=== PATIENT | male | born 1960 | race Caucasian/White ===

== ENCOUNTER 2018-11-29 07:12 | Outpatient (CLI) | payer OTHER ==
--- NOTE | 2018-11-29 10:20 | CT ---
CT ABDOMEN AND PELVIS WITH IV CONTRAST: 11/29/2018 PROVIDED CLINICAL HISTORY: Prostate cancer. COMPARISON: CT chest, abdomen, and pelvis from 04/08/2014. FINDINGS: The visualized lung bases are free or significant opacity. The liver, spleen, pancreas, kidneys, and adrenal glands demonstrate an unremarkable CT appearance. There is no bowel dilatation, inflammatory fat stranding, free fluid, or lymph node enlargement appar ent. Vascular calcifications are seen. Small fat-containing left inguinal hernia. Sigmoid colonic divert iculosis. The osseous structures demonstrate no concerning lytic or blastic lesions. Stable bone island in the left medial iliac bone. Degenerative changes are seen involving the lumbar spine. IMPRESSION: No evidence for an acute process. Chronic findings as above. POS: OFF
== END 2018-11-29 07:13 | disposition home or self-care (01) ==
LOC: SCSCT 07:12
PROVIDERS: ATTEND Urology
DX: C61 Malignant neoplasm of prostate (principal); R31.29 Other microscopic hematuria
CPT/HCPCS: 74176; 74177

== ENCOUNTER 2018-12-25 08:27 | Outpatient (CLI) | payer OTHER ==
--- NOTE | 2018-12-25 15:53 | MRI ---
MRI OF THE PELVIS WITH AND WITHOUT IV CONTRAST: INDICATION: History of prostate cancer. CONTRAST: 20 cc of MultiHance. TECHNIQUE: Multiplanar, multisequence MRI images were obtained of the pelvis with and without IV contrast utiliz ing prostate cancer specific protocol. The images were interpreted at a separate 3D DynaCAD work sta tion for multiperimetric evaluation. FINDINGS: The prostate gland measures 3.9 x 2.7 x 2.8 cm. There is a large focus of restricted diffusion and T2 hypointensity seen within the peripheral zone o f the mid to apical left aspect of the prostate gland measuring 1.6 x 0.9 cm with associated abnormal dynamic contrast enhancement highly suspicious for a malignancy. There is an additional focus of restricted diffusion, T2 hypointensity, and abnormal contrast enhance ment involving the right mid to right apical prostate gland measuring 1.5 x 0.5 cm. Both lesions demonstrate evidence of extracapsular extension. One of the most prominent examples of extracapsular extension is seen off the right medial mid gland on image 17 of series 4. There is siddhartha rovascular invasion bilaterally. No pathologically enlarged lymph nodes are evident. There are scattered diverticula involving the colon. No bone marrow signal abnormality is evident. IMPRESSION: 1. PIRADS category 5 - very high (clinically significant cancer is highly likely to be present). 2. There are 2 large lesions seen within the peripheral zone of the mid to apical prostate gland per ipheral zone which demonstrates extracapsular extension and neurovascular invasion bilaterally. POS: TPC
== END 2018-12-25 08:28 | disposition home or self-care (01) ==
LOC: TBSIIMAG 08:27
PROVIDERS: ATTEND Urology
DX: C61 Malignant neoplasm of prostate (principal)
CPT/HCPCS: 72197

== ENCOUNTER 2019-01-26 13:03 | Outpatient (CLI) | payer OTHER ==
[2019-01-26 15:05] LABS: #Basophils 0.1 thou/uL (0.0-0.2); #Eosinphils 0.3 thou/uL (0.0-0.7); #Lymphocytes 1.7 thou/uL (1.20-3.40); #Monocytes 0.4 thou/uL (0.11-0.59); #Neutrophils 2.9 thou/uL (1.40-6.50); %Basophils 1.2 % (0.0-1.0); %Eosinophils 5.4 % (0.0-10.0); %Lymphocytes 31.8 % (21.0-51.0); %Monocytes 8.1 % (0.0-10.0); %Neutrophils 53.5 % (42.0-75.0); Hemoglobin 16.5 g/dL (14.0-18.0); Mean Corpuscular Hemoglobin 32.3 pg (27.0-31.0); Mean Corpuscular Volume 92.3 fL (78.0-98.0); Mean Platelet Volume 8.9 fL (7.4-10.4); Platelet Count 135 thou/uL (130-400); RBC Distribution Width 11.5 % (11.5-14.5); Red Blood Cell (RBC) Count 5.09 mill/uL (4.70-6.10); White Blood Cell (WBC) Count 5.4 thou/uL (4.8-10.8)
[2019-01-26 15:11] LABS: PTT 25.3 SEC (22.9-36.1)
[2019-01-26 15:16] LABS: Bilirubin Negative (Negative); Blood, Urine 2+ (Negative); Clarity Clear (Clear); Glucose, Urine (Dipstick) 300 mg/dL (Negative); Leukocyte Negative Leu/uL (Negative); Nitrite Negative (Negative); Protein, Urine (Dipstick) Negative (Neg-Trace); Squamous Epithelial None Seen HPF (0-3); Urobilinogen Normal mg/dL (Less than 2); WBC/HPF 0-3 HPF (0-3)
[2019-01-26 15:26] LABS: ALT (SGPT) 106 U/L (8-55); AST (SGOT) 47 U/L (5-34); Albumin 4.2 g/dL (3.5-5.0); Alkaline Phosphatase 95 U/L (40-150); Anion Gap 13 mmol/L (10-20); BUN (Urea Nitrogen) 15 mg/dL (8.4-25.7); Bilirubin, Total 0.5 mg/dL (0.2-1.2); Calc. Creatinine Clearance 0 mL/min (70-130); Calcium 9.3 mg/dL (7.8-10.44); Carbon Dioxide 26 mmol/L (22-29); Chloride 100 mmol/L (98-107); Estimated GFR-MDRD 72; Globulin 2.9 g/dL (2.4-3.5); Glucose 186 mg/dL (70-105); Potassium 3.9 mmol/L (3.5-5.1); Protein, Total 7.1 g/dL (6.0-8.3); Sodium 135 mmol/L (136-145)
[2019-01-26 15:37] LABS: Bacteria/HPF None Seen HPF (None Seen)
--- NOTE | 2019-01-26 16:33 | EKG ---
Test Reason : Blood Pressure : / mmHG Vent. Rate : 061 BPM Atrial Rate : 061 BPM P-R Int : 132 ms QRS Dur : 096 ms QT Int : 396 ms P-R-T Axes : 055 063 047 degrees QTc Int : 398 ms Normal sinus rhythm Normal ECG When compared with ECG of 01-FEB-1994 20:17, No significant change was found Confirmed by ASHLY MCNEIL, SEdvin ([id number]) on 01/26/2019 4:32:56 PM Referred By: SRAVANI Confirmed By:DR. Fareed LIMON MD
== END 2019-01-26 13:04 | disposition home or self-care (01) ==
LOC: LABBT 13:03
PROVIDERS: ATTEND Urology
DX: Z01.818 Encounter for other preprocedural examination (principal); C61 Malignant neoplasm of prostate
CPT/HCPCS: 80053; 81001; 85025; 85610; 85730; 87086; 93005; 93010

== ENCOUNTER 2019-02-05 05:48 | Inpatient (IN) | payer OTHER ==
[2019-01-26 13:38] VITALS: BMI 27.9
[2019-02-05] MEDS ORDERED: Levofloxacin 500 mg/D5W 100 ml Premix Bag ONE (06:20)
[2019-02-05] MEDS ORDERED: cefOXitin Sodium 1 GM in Sodium Chloride 0.9% 100 ML IVPB SCH (06:30)
[2019-02-05] MEDS ORDERED: cefOXitin Sodium/Dextrose,Iso 1 GM in Premix Bag 1 BAG IVPB SCH (06:45)
[2019-02-05] MEDS ORDERED: Fentanyl 250 MCG/5 ML VIAL ONE (06:47)
[2019-02-05] MEDS ORDERED: HYDROmorphone 2 MG/ML VIAL ONE (06:47)
[2019-02-05] MEDS ORDERED: Fentanyl 100 MCG/2 ML VIAL ONE ×4 (06:47→15:47)
[2019-02-05] MEDS ORDERED: Vecuronium 10 MG VIAL ONE (06:48)
[2019-02-05] MEDS ORDERED: Famotidine/PF 20 mg/2ml Vial ONE (06:48)
[2019-02-05] MEDS ORDERED: Midazolam HCl 2 mg/2 ml Vial ONE ×2 (07:02→07:08)
[2019-02-05] MEDS ORDERED: SUGAMMADEX SODIUM 500 MG/5 ML VIAL ONE (10:27)
[2019-02-05] MEDS ORDERED: Promethazine HCl 25 MG/ML VIAL IM PRN (14:34)
[2019-02-05] MEDS ORDERED: Meperidine HCl/PF 25 MG/ML VIAL SLOW IVP PRN (14:34)
[2019-02-05] MEDS ORDERED: Promethazine HCl 25 MG/ML VIAL SLOW IVP PRN (14:34)
[2019-02-05] MEDS ORDERED: Ondansetron HCl/PF 4 MG/2 ML Vial IVP PRN (14:34)
[2019-02-05] MEDS ORDERED: Morphine 2 MG/ML SYRINGE SLOW IVP PRN (14:48)
[2019-02-05] MEDS ORDERED: Ondansetron PF 4 MG/2 ML Vial IVP PRN (14:48)
[2019-02-05] MEDS ORDERED: hydrALAZINE 20 MG/ML VIAL SLOW IVP PRN ×2 (14:48)
[2019-02-05] MEDS ORDERED: diphenhydrAMINE 50 MG/ML VIAL IVP PRN (14:48)
[2019-02-05] MEDS ORDERED: Phenazopyridine HCl 97.5 MG TABLET PO PRN (14:48)
[2019-02-05] MEDS ORDERED: Mag-Al 1200 mg/1200 mg/30 ML UDCUP PO PRN (14:48)
[2019-02-05] MEDS ORDERED: Morphine 4 MG/ML VIAL SLOW IVP PRN (14:48)
[2019-02-05] MEDS ORDERED: Dextrose 5% in Water 1,000 ML IV PRN (14:48)
[2019-02-05] MEDS ORDERED: HYDROcodone/Acetaminophen 5/325 mg Tablet PO PRN (14:48)
[2019-02-05] MEDS ORDERED: Dextrose 50% Abboject 50 ML SYRINGE SLOW IVP PRN (14:48)
[2019-02-05] MEDS ORDERED: Oxybutynin 5 MG TAB PO SCH (15:15)
[2019-02-05 15:19] LABS: #Lymphocytes 0.7 thou/uL (1.20-3.40); #Monocytes 0.3 thou/uL (0.11-0.59); #Neutrophils 10.6 thou/uL (1.40-6.50); %Basophils 0.1 % (0.0-1.0); %Eosinophils 0.4 % (0.0-10.0); %Lymphocytes 5.8 % (21.0-51.0); %Monocytes 2.5 % (0.0-10.0); %Neutrophils 91.2 % (42.0-75.0); Hemoglobin 15.9 g/dL (14.0-18.0); Mean Corpuscular Hemoglobin 31.8 pg (27.0-31.0); Mean Platelet Volume 8.1 fL (7.4-10.4); Platelet Count 152 thou/uL (130-400); RBC Distribution Width 11.6 % (11.5-14.5); Red Blood Cell (RBC) Count 4.98 mill/uL (4.70-6.10); White Blood Cell (WBC) Count 11.7 thou/uL (4.8-10.8)
[2019-02-05 15:37] LABS: Anion Gap 16 mmol/L (10-20); BUN (Urea Nitrogen) 20 mg/dL (8.4-25.7); Calc. Creatinine Clearance 105 mL/min (70-130); Calcium 8.3 mg/dL (7.8-10.44); Carbon Dioxide 18 mmol/L (22-29); Chloride 103 mmol/L (98-107); Estimated GFR-MDRD 76; Glucose 229 mg/dL (70-105); Potassium 4.6 mmol/L (3.5-5.1); Sodium 132 mmol/L (136-145)
--- NOTE | 2019-02-05 17:09 | OP ---
DATE OF PROCEDURE: 02/05/2019 PREOPERATIVE DIAGNOSIS: A 58-year-old male with clinical T1c-T2 prostate cancer , PSA 5.7, Jesus score 3+4, 4+5, 3+3, 11/12 cores positive with perineural invasion, bilateral extracapsular extension on MRI. POSTOPERATIVE DIAGNOSIS: A 58-year-old male with clinical T1c-T2 prostate cancer, PSA 5.7, [place] score 3+4, 4+5, 3+3, 11/12 cores positive with perineural invasion, bilateral extracapsular extension on MRI. PROCEDURES PERFORMED: Robotic-assisted laparoscopic radical prostatectomy, bilateral pelvic lymph node dissection. MOLASSES AND CARAMEL OPERATOR: En Malik MD ANESTHESIA: General. COMPLICATIONS: None apparent. DISPOSITION: To recovery room in stable condition. DRAIN: RICHARD circular drain x1, 18-Mosotho 10 mL, 15 mL insufflated to gravity. IV FLUIDS: 3 L. ESTIMATED BLOOD LOSS: Less than 100. INDICATIONS FOR THE PROCEDURE AND HISTORY: Mr. Garcia is a 58-year-old male with clinical T1c-T2 prostate cancer, Jesus sum 3+3, 3+4, 4+5, 11/12 cores positive. With perineural invasion and bilateral extracapsular extension on MRI, presents today for a robotic-assisted laparoscopic radical prostatectomy, bilateral pelvic lymph node dissection. We fully disclosed and discussed in detail. Risks and complications of the procedure including, but not limited to, bleeding, pain, infection, injury to adjacent organs such as ureteral orifices, rectum, major vasculature, bony structures, expectations of impotence as we are performing wide nerve sparing, incontinence of urge and stress incontinence requiring secondary procedure, PE, DVT, perioperative morbidity, mortality. We have also discussed that given his high-grade, high-volume prostate cancer that he will most likely require adjuvant radiation therapy. With the full understanding the multimodality therapy may be performed that he desired to proceed with radical prostatectomy. Possible conversion to open was discussed. Alternatives of the option including various modality of radiation, cryo photon therapy, primary radiation therapy, active surveillance, watchful waiting was also reviewed and he desired to proceed with robotic prostatectomy. DESCRIPTION OF PROCEDURE: After an informed consent was signed, the patient was taken to the operating room, placed in supine position. A tap block was performed by Anesthesia in the preoperative unit. At this time, an art-line and an OG tube were placed. The patient's abdomen was formally prepped and draped in the usual surgical sterile fashion. Using a Veress needle entry, we obtained pneumoperitoneum at a high flow low pressure input. After adequate pneumoperitoneum achieved at 15 mmHg, we made an infraumbilical camera port incision using an 11 blade and a 12 mm robotic camera trocar was placed. Laparoscopy was performed at this time, surveilling the intraabdominal contents, which demonstrated no evidence of bowel or major vascular injury. There were some adhesions in the left lateral pelvis of the adherent colon. We then proceeded placing robotic arms. We placed our 8 mm robotic ports in the left side of the abdomen. On the right side of the abdomen, a 12 mm port was placed as we were placing an endovascular stapler. An 11 mm account assistant port was placed on the right side. A 5 mm account assistant port was placed in the right upper abdomen. With all ports placed, robot was then docked. Prior to placing our robotic ports, an 18-Mosotho 10 mL Nickerson catheter was passed without significant issues and obtained clear yellow urine output. At this time, the robot was docked and we proceeded to perform a robotic prostatectomy. Adhesions of the colon in the left lateral side of the pelvis was performed, freeing the sigmoid colon. The rectum was retracted cephalad with the third arm. We entered the rectovesical region. The reflection of the perirectal fat was seen, and approximately 1.5 cm above this reflection of the perirectal fat, we made a peritoneotomy incision entering the posterior space. This was opened laterally and we utilized sharp and blunt dissection, mobilizing our vas bilaterally and seminal vesicles. The seminal vesicles were completely divided to the level of the prostate insertion. With the posterior dissection completed, we moved to the anterior aspect of the bladder, mobilizing the bladder. The medial umbilical ligaments of the bladder were seen and we retracted medially thereby getting into the prevesical space. We dropped the bladder down in a systematic manner entering the appropriate space of Retzius and the pubic arch was visualized. The fibroareolar tissue around the pubic arch was cleaned using blunt and sharp dissection using monopolar and bipolar cautery. At this time, we identified the puboprostatic ligament, bladder neck, and the endopelvic fascia. Mr. Garcia has a very small prostate, measuring only 19 g on ultrasound and this was seen intra-abdominally as well. The bladder was retracted cephalad with balloon as a guide. Endopelvic fascia was entered using bipolar and monopolar scissors. Dividing the endopelvic fascia, we were able to dissect the levator muscles off the prostate laterally. We then approached the apex of the prostate and the puboprostatic ligaments were divided with bipolar and monopolar. The dorsal vein complex was then completely divided using robotic stapler. After the dorsal vein complex was divided, then we proceeded to divide our bladder neck. The junction of the prostatovesical junction was identified using the balloon as he has a small prostate. We divided the bladder apron as it adheres to the mid of the prostate. The bladder was then divided off the prostate. We had a great plane going down to the level of the urethra and urethra was identified and divided with monopolar scissors. The posterior lip of the urethra was then subsequently divided. We made our approach to drop down to our posterior plane that we created to deliver the seminal vesicles and the vas. However, we entered the prostate junction prematurely. Therefore, a new plane was created correcting the angle. With this, we were able to get the residual prostate attaching to the seminal vesicles and delivered free and dissected completely off the lateral pedicles and delivered. We at this time approached our lateral pedicles using vessel sealer laterally. These were divided to the level of the mid prostate. Toward the apex of the prostate , we used sharp dissection using bipolar and monopolar. The urethra was then sharply dissected and divided using cold scissors. The apex of the prostate was dissected off the rectourethralis using sharp dissection only. With the prostate completely removed, we evaluated him with digital exam to ensure that there was no rectal injury. Air was insufflated through the rectum and there was no evidence of air leak. There was an oozing vessel in the lateral pedicle toward the apex, this was oversewn using 3-0 Vicryl on an SH needle. We then placed an 18-Mosotho Nickerson catheter through the urethra. A Negro stitch was utilized using 2-0 V-Loc stitch, reapproximating the rectourethralis to the posterior aspect of the bladder. This lined up by urethra in the bladder neck nicely. At this time with the Negro stitch in place, we then utilized a 2-0 V-Loc on an SH needle to create our anastomosis. An 18-Mosotho Nickerson catheter was able to be passed without significant issues with our posterior plate completed. There was some hang up on the posterior stitch; however, with further suture placed in the lateral aspect of the urethra, we were able to pass the catheter in and out of our anastomosis without significant issues. The anastomosis was complete and a new 18-Mosotho 10 mL Nickerson catheter was placed and 15 mL insufflated into the balloon and demonstrated clear output. We leak tested with no gross evidence of extravasation. The wound was copiously irrigated and Tisseel was placed in the area of the endopelvic fascia. Prior to performing our anastomosis, we did perform bilateral pelvic lymph node dissection. There was scant amount of fibroadipose tissue as well as lymph node packet. No pathologic lymph nodes were grossly seen. We obtained good hemostasis with our bilateral pelvic lymph node dissection without significant issues. A circular drain was placed in the posterior space of the rectum. Our specimen was then placed in an EndoCatch and delivered through our 12 mm port. The fascia of our specimen delivery site as well as the 11 and 12 mm port were closed with 2-0 Vicryl. Harshal-Osbaldo was utilized to close our 11 and 12 mm port. Ivqhho-ow-lnerr using 2-0 Vicryl was utilized to close the camera specimen delivery incision site. The skin was closed with 4-0 Maxon in a continuous fashion subcuticular and he tolerated the procedure well, transported to the recovery room in stable condition. Job ID: [id number] [facility]
[2019-02-05] MEDS: Sodium Chloride 0.9% 1,000 ML IV SCH ×2 (17:47→20:05)
[2019-02-05] MEDS: Insulin Regular 300 UNITS/3 ML VIAL SC PRN ×2 (18:40→21:19)
[2019-02-05] MEDS: Famotidine 20 MG TAB PO SCH (20:04)
[2019-02-05] MEDS: Docusate 100 MG CAP PO SCH (20:19)
[2019-02-05] MEDS: Famotidine/PF 20 mg/2ml Vial SLOW IVP SCH (20:19)
[2019-02-05] MEDS: cefOXitin 1.5 GM in Sodium Chloride 0.9% 100 ML IVPB SCH (21:18)
[2019-02-05] MEDS: Oxybutynin 5 MG TAB PO SCH (21:19)
[2019-02-06] MEDS: Oxybutynin 5 MG TAB PO SCH ×3 (05:43→21:10)
[2019-02-06 05:44] LABS: #Lymphocytes 1.2 thou/uL (1.20-3.40); #Monocytes 0.8 thou/uL (0.11-0.59); %Basophils 0.2 % (0.0-1.0); %Eosinophils 0.3 % (0.0-10.0); %Lymphocytes 12.7 % (21.0-51.0); %Monocytes 9.3 % (0.0-10.0); %Neutrophils 77.5 % (42.0-75.0); Hemoglobin 14.4 g/dL (14.0-18.0); Mean Corpuscular HGB CONC 34.1 g/dL (32.0-36.0); Mean Corpuscular Hemoglobin 31.5 pg (27.0-31.0); Mean Corpuscular Volume 92.3 fL (78.0-98.0); Mean Platelet Volume 8.1 fL (7.4-10.4); Platelet Count 146 thou/uL (130-400); RBC Distribution Width 11.4 % (11.5-14.5); Red Blood Cell (RBC) Count 4.56 mill/uL (4.70-6.10); White Blood Cell (WBC) Count 9.1 thou/uL (4.8-10.8)
[2019-02-06] MEDS: Sodium Chloride 0.9% 1,000 ML IV SCH (05:44)
[2019-02-06] MEDS: cefOXitin 1.5 GM in Sodium Chloride 0.9% 100 ML IVPB SCH ×3 (05:44→21:09)
[2019-02-06 06:04] LABS: Anion Gap 11 mmol/L (10-20); BUN (Urea Nitrogen) 14 mg/dL (8.4-25.7); Calc. Creatinine Clearance 113 mL/min (70-130); Carbon Dioxide 23 mmol/L (22-29); Chloride 104 mmol/L (98-107); Estimated GFR-MDRD 83; Glucose 155 mg/dL (70-105); Potassium 3.9 mmol/L (3.5-5.1); Sodium 134 mmol/L (136-145)
[2019-02-06] MEDS: HYDROcodone/Acetaminophen 5/325 mg Tablet PO PRN ×3 (07:47→18:29)
[2019-02-06] MEDS: Docusate 100 MG CAP PO SCH ×2 (07:47→21:09)
[2019-02-06] MEDS: Famotidine 20 MG TAB PO SCH ×2 (07:48→21:10)
[2019-02-06] MEDS: Famotidine/PF 20 mg/2ml Vial SLOW IVP SCH ×2 (07:49→21:06)
--- NOTE | 2019-02-06 07:51 | PRG ---
DATE OF SERVICE: 02/06/2019 SUBJECTIVE: The patient is feeling well, pain well controlled. Denies nausea or vomiting. Not yet passed flatus; however, tolerating clears. OBJECTIVE: VITAL SIGNS: Stable. He is afebrile, temperature 97, heart rate 73 , blood pressure 111/70, and 100% saturation. RICHARD output 30 mL. Urine output 1750. HEART: Regular rate. LUNGS: Clear. ABDOMEN: Active bowel sounds. Minimally distended. Incisions are clean, dry, and intact. No rigidity. No rebound. EXTREMITIES: No cyanosis, clubbing, or edema. No calf tenderness is appreciated. PERTINENT LABORATORY DATA: White count 9, hemoglobin 14.4, platelets 146. Creatinine is 0.9. Blood sugars running 113 from 267. IMPRESSION AND PLAN: Mr. Garcia is a 58-year-old male with clinical T1c, T2 prostate cancer. Postoperative day #1, status post robotic-assisted laparoscopic radical prostatectomy, bilateral pelvic lymph node dissection. The patient is surgically stable. will Hep-Lock IV, initiate bland diet. Continue sliding scale insulin. The patient to be aggressively out of bed. We will continue SCDs while in bed, as aggressive pulmonary toilet. The patient encouraged to be out of bed. Job ID: [id number] [facility]
[2019-02-06] MEDS ORDERED: [UNRECOGNIZED DRUG - OTHER] SQ SCH (09:00)
[2019-02-06] MEDS ORDERED: INSULIN GLARGINE HUM REC ANLOG SQ SCH (09:00)
[2019-02-06] MEDS: Insulin Glargine 15 UNITS in Pre-Filled Syringe 1 EACH SC SCH (09:20)
[2019-02-06] MEDS: Insulin Regular 300 UNITS/3 ML VIAL SC PRN ×2 (12:48→17:34)
[2019-02-07 05:18] LABS: Anion Gap 14 mmol/L (10-20); BUN (Urea Nitrogen) 12 mg/dL (8.4-25.7); Calc. Creatinine Clearance 127 mL/min (70-130); Calcium 8.2 mg/dL (7.8-10.44); Carbon Dioxide 22 mmol/L (22-29); Chloride 105 mmol/L (98-107); Estimated GFR-MDRD Greater than 90; Glucose 130 mg/dL (70-105); Potassium 3.7 mmol/L (3.5-5.1); Sodium 137 mmol/L (136-145)
[2019-02-07 05:32] LABS: #Eosinphils 0.1 thou/uL (0.0-0.7); #Lymphocytes 1.4 thou/uL (1.20-3.40); #Monocytes 0.6 thou/uL (0.11-0.59); #Neutrophils 5.3 thou/uL (1.40-6.50); %Basophils 0.3 % (0.0-1.0); %Eosinophils 1.2 % (0.0-10.0); %Lymphocytes 18.5 % (21.0-51.0); %Monocytes 8.5 % (0.0-10.0); %Neutrophils 71.6 % (42.0-75.0); Hemoglobin 14.6 g/dL (14.0-18.0); Mean Corpuscular HGB CONC 35.3 g/dL (32.0-36.0); Mean Corpuscular Hemoglobin 32.6 pg (27.0-31.0); Mean Corpuscular Volume 92.4 fL (78.0-98.0); Mean Platelet Volume 8.5 fL (7.4-10.4); Platelet Count 102 thou/uL (130-400); Platelet Morphology Comment Appears Decreased; RBC Distribution Width 11.5 % (11.5-14.5); RBC Morphology Normal; Red Blood Cell (RBC) Count 4.48 mill/uL (4.70-6.10); White Blood Cell (WBC) Count 7.3 thou/uL (4.8-10.8)
[2019-02-07] MEDS: cefOXitin 1.5 GM in Sodium Chloride 0.9% 100 ML IVPB SCH (06:34)
[2019-02-07] MEDS: Oxybutynin 5 MG TAB PO SCH ×3 (06:34→21:22)
--- NOTE | 2019-02-07 08:12 | PRG ---
DATE OF SERVICE: 02/07/2019 SUBJECTIVE: The patient is feeling well, has passed flatus multiple times, less discomfort in the lower abdomen. OBJECTIVE: VITAL SIGNS: Stable. Temperature 98, heart rate 73, respiratory rate 16, saturation 94, blood pressure 124/79. Is and Os 600 in, 3490 out. RICHARD is 190 over 24 hours, serosanguineous pink-tinged. Urine output 3300. Clear yellow. LUNGS: Clear. ABDOMEN: Soft. There is no rigidity. No rebound. Incisions are clean, dry, and intact. EXTREMITIES: No cyanosis, clubbing, or edema. No calf tenderness. PERTINENT LABORATORY DATA: White count stable at 7.3, hemoglobin 14.6, platelet 102. BMP profile is within normal limits. Creatinine 0.83. IMPRESSION AND PLAN: Mr. Garcia is a 58-year-old male with clinical T1c, T2 prostate cancer, postoperative day #2, status post robotic-assisted laparoscopic prostatectomy, bilateral pelvic lymph node dissection. The patient doing well. We will increase his diet to more substance. He is passing flatus, has aggressively been out of bed. We will discontinue antibiotics, continue sliding scale insulin. We will check RICHARD creatinine, if grossly unremarkable for elevated creatinine, we will discontinue RICHARD. Anticipate the patient can be discharged this afternoon or tomorrow. The patient states that he would rather stay one more day. We will reassess him in the afternoon. He is doing well. Pathology pending. Job ID: [id number] [facility]
[2019-02-07] MEDS: Docusate 100 MG CAP PO SCH ×2 (08:16→21:23)
[2019-02-07] MEDS: Famotidine 20 MG TAB PO SCH ×2 (08:16→21:22)
[2019-02-07] MEDS: Insulin Glargine 15 UNITS in Pre-Filled Syringe 1 EACH SC SCH (08:17)
[2019-02-07] MEDS: Famotidine/PF 20 mg/2ml Vial SLOW IVP SCH (08:17)
[2019-02-07] MEDS: Insulin Regular 300 UNITS/3 ML VIAL SC PRN ×3 (13:07→21:21)
[2019-02-07] MEDS ORDERED: Zolpidem Tartrate 5 MG TAB PO PRN (17:15)
[2019-02-08] MEDS: Famotidine/PF 20 mg/2ml Vial SLOW IVP SCH ×2 (00:52→09:13)
[2019-02-08] MEDS: Oxybutynin 5 MG TAB PO SCH (05:55)
[2019-02-08 06:27] LABS: #Eosinphils 0.2 thou/uL (0.0-0.7); #Lymphocytes 1.5 thou/uL (1.20-3.40); #Monocytes 0.6 thou/uL (0.11-0.59); #Neutrophils 3.7 thou/uL (1.40-6.50); %Basophils 0.7 % (0.0-1.0); %Eosinophils 3.4 % (0.0-10.0); %Monocytes 9.8 % (0.0-10.0); %Neutrophils 61.2 % (42.0-75.0); Hemoglobin 14.7 g/dL (14.0-18.0); Mean Corpuscular HGB CONC 33.5 g/dL (32.0-36.0); Mean Corpuscular Hemoglobin 30.8 pg (27.0-31.0); Mean Corpuscular Volume 92.1 fL (78.0-98.0); Mean Platelet Volume 8.4 fL (7.4-10.4); Platelet Count 119 thou/uL (130-400); RBC Distribution Width 11.4 % (11.5-14.5); Red Blood Cell (RBC) Count 4.76 mill/uL (4.70-6.10); White Blood Cell (WBC) Count 6.1 thou/uL (4.8-10.8)
[2019-02-08 06:38] LABS: Anion Gap 11 mmol/L (10-20); BUN (Urea Nitrogen) 13 mg/dL (8.4-25.7); Calc. Creatinine Clearance 119 mL/min (70-130); Calcium 8.7 mg/dL (7.8-10.44); Carbon Dioxide 26 mmol/L (22-29); Chloride 104 mmol/L (98-107); Estimated GFR-MDRD 89; Glucose 136 mg/dL (70-105); Potassium 4.1 mmol/L (3.5-5.1); Sodium 137 mmol/L (136-145)
--- NOTE | 2019-02-08 08:01 | DIS ---
DATE OF ADMISSION: 02/05/2019 DATE OF DISCHARGE: 02/08/2019 ADMITTING DIAGNOSIS: Adenocarcinoma of the prostate. DISCHARGE DIAGNOSIS: Adenocarcinoma of the prostate. PROCEDURE PERFORMED: Robotic-assisted laparoscopic radical prostatectomy, bilateral pelvic lymph node dissection. DISPOSITION: To home. CONDITION: Stable. DISCHARGE INSTRUCTIONS: No heavy lifting, strenuous activity. No straddling exercises. No heavy lifting greater than 10 pounds. The patient discharged with indwelling Nickerson catheter to gravity, leg bag. DISCHARGE MEDICATIONS: The patient may resume his home medications, no aspirin or ibuprofen products. He is discharged with; 1. VESIcare 5 mg one p.o. daily, #20. 2. Colace 100 mg one p.o. b.i.d. 3. Eastsound 5/325, #30, one to two p.o. q.6-8 h. p.r.n. FOLLOWUP: follow up next week. PATHOLOGY: Pending. BRIEF HOSPITAL COURSE: Mr. Garcia is a pleasant 58-year-old male with high-grade, high-volume prostate cancer, underwent robotic prostatectomy uneventfully. His lab has been stable, he was tolerating regular diet, passing gas. He was doing well enough to be discharged last night, however, due to a lapse time in the afternoon, he desired to stay one more night. His RICHARD was removed, RICHARD creatinine unremarkable. His exam is benign and stable. Discharged home uneventfully. Job ID: [id number] [facility]
[2019-02-08] MEDS: Docusate 100 MG CAP PO SCH (09:12)
[2019-02-08] MEDS: Insulin Glargine 15 UNITS in Pre-Filled Syringe 1 EACH SC SCH (09:12)
[2019-02-08] MEDS: Famotidine 20 MG TAB PO SCH (09:12)
[2019-02-08 09:28] VITALS: BP 134/87; TEMP 98
== END 2019-02-08 10:40 | disposition home or self-care (01) | DRG 708 ==
LOC: SURG A 05:48
PROVIDERS: ADMIT Urology; ATTEND Urology
PROC: 0VT04ZZ Resection of Prostate, Percutaneous Endoscopic Approach (ICD-10-PCS; principal; 2019-02-05)
PROC: 07BC4ZZ Excision of Pelvis Lymphatic, Percutaneous Endoscopic Approach (ICD-10-PCS; 2019-02-05)
PROC: 8E0W4CZ Robotic Assisted Procedure of Trunk Region, Percutaneous Endoscopic Approach (ICD-10-PCS; 2019-02-05)
DX: C61 Malignant neoplasm of prostate (principal); I10 Essential (primary) hypertension; E11.9 Type 2 diabetes mellitus without complications; E78.5 Hyperlipidemia, unspecified; N40.0 Benign prostatic hyperplasia without lower urinary tract symptoms; Z88.8 Allergy status to other drugs, medicaments and biological substances; Z98.890 Other specified postprocedural states
CPT/HCPCS: 36415; 36416; 80048; 82570; 85025; 86850; 86900; 86901; 88309; J0131; J0694; J1170; J1642; J1815; J1956; J2250; J2270; J3010; J3490; S0028

== ENCOUNTER 2019-06-11 06:23 | Outpatient (CLI) | payer OTHER ==
[2019-06-11 11:18] LABS: Hemoglobin 16.9 g/dL (14.0-18.0); Mean Corpuscular HGB CONC 34.8 g/dL (32.0-36.0); Mean Corpuscular Hemoglobin 31.2 pg (27.0-31.0); Mean Corpuscular Volume 89.9 fL (78.0-98.0); Mean Platelet Volume 9.2 fL (7.4-10.4); Platelet Count 125 thou/uL (130-400); RBC Distribution Width 11.7 % (11.5-14.5); Red Blood Cell (RBC) Count 5.41 mill/uL (4.70-6.10); White Blood Cell (WBC) Count 3.7 thou/uL (4.8-10.8)
[2019-06-11 11:25] LABS: Bacteria/HPF None Seen HPF (None Seen); Bilirubin Negative (Negative); Blood, Urine 2+ (Negative); Clarity Clear (Clear); Glucose, Urine (Dipstick) Normal (Negative); Leukocyte Negative Leu/uL (Negative); Nitrite Negative (Negative); Protein, Urine (Dipstick) 10 mg/dL (Neg-Trace); Squamous Epithelial None Seen HPF (0-3); Urobilinogen Normal mg/dL (Less than 2); WBC/HPF None Seen HPF (0-3)
[2019-06-11 11:30] LABS: PTT 25.1 SEC (22.9-36.1)
[2019-06-11 11:52] LABS: Anion Gap 14 mmol/L (10-20); BUN (Urea Nitrogen) 16 mg/dL (8.4-25.7); Calc. Creatinine Clearance 0 mL/min (70-130); Calcium 9.5 mg/dL (7.8-10.44); Carbon Dioxide 26 mmol/L (22-29); Chloride 102 mmol/L (98-107); Estimated GFR-MDRD 69; Glucose 152 mg/dL (70-105); Potassium 4.4 mmol/L (3.5-5.1); Sodium 138 mmol/L (136-145)
--- NOTE | 2019-06-14 13:06 | EKG ---
Test Reason : Blood Pressure : / mmHG Vent. Rate : 072 BPM Atrial Rate : 072 BPM P-R Int : 126 ms QRS Dur : 088 ms QT Int : 386 ms P-R-T Axes : 053 055 034 degrees QTc Int : 422 ms Normal sinus rhythm Normal ECG Confirmed by BERENICE NAJERA ([id number]) on 06/14/2019 1:06:00 PM Referred By: SRAVANI Confirmed By:BERENICE NAJERA
== END 2019-06-11 06:24 | disposition home or self-care (01) ==
LOC: LABBT 06:23
PROVIDERS: ATTEND Urology
DX: Z01.818 Encounter for other preprocedural examination (principal); C61 Malignant neoplasm of prostate; E11.69 Type 2 diabetes mellitus with other specified complication; R31.29 Other microscopic hematuria; E78.2 Mixed hyperlipidemia; N40.1 Benign prostatic hyperplasia with lower urinary tract symptoms; N35.819 Other urethral stricture, male, unspecified site; R33.9 Retention of urine, unspecified
CPT/HCPCS: 80048; 81001; 85027; 85610; 85730; 87086; 93005; 93010

== ENCOUNTER 2019-06-25 07:27 | Day surgery (SDC) | payer OTHER ==
[2019-06-11 09:41] VITALS: BMI 28.0
[2019-06-25] MEDS ORDERED: Levofloxacin 500 mg/D5W 100 ml Premix Bag ONE (07:58)
[2019-06-25] MEDS ORDERED: Iothalamate Meglumine 60% 50 ML VIAL FS ONE (09:38)
[2019-06-25] MEDS ORDERED: PROPOFOL 200 MG/20 ML VIAL ONE (09:39)
[2019-06-25] MEDS ORDERED: Lidocaine 1% PF 5 ML VIAL ONE (09:39)
[2019-06-25] MEDS ORDERED: PHENYLEPHRINE-NS 100 MCG/ML 10 ML SYRINGE ONE (09:39)
[2019-06-25] MEDS ORDERED: Ondansetron PF 4 MG/2 ML Vial ONE (09:39)
[2019-06-25] MEDS ORDERED: Fentanyl 100 MCG/2 ML VIAL ONE ×2 (09:42→11:35)
[2019-06-25] MEDS ORDERED: Phenazopyridine HCl 97.5 MG TABLET ONE (10:59)
[2019-06-25] MEDS ORDERED: Oxybutynin 5 MG TAB ONE ×2 (10:59→11:00)
--- NOTE | 2019-06-25 13:06 | RAD ---
RETROGRADE PYELOGRAM: Date: 06/25/2019 HISTORY: Stent placement. FINDINGS: A single film is presented for interpretation. It shows a wire in the region of the bladder. No contr ast injected on this exam. IMPRESSION: Single image showing wire placement in the bladder. No evidence of any stent placement. POS: ANDREW
--- NOTE | 2019-06-25 15:16 | OP ---
DATE OF PROCEDURE: 06/25/2019 PREOPERATIVE DIAGNOSES: 1. A 58-year-old male with pathologic pT3b Jesus score 4 + 3. 2. History of incomplete void prior to radical prostatectomy. 3. Bladder neck contracture. 4. History of microscopic hematuria. POSTOPERATIVE DIAGNOSES: 1. A 58-year-old male with pathologic T3b Jesus score 4 + 3. 2. History of incomplete void prior to radical prostatectomy. 3. Bladder neck contracture. 4. History of microscopic hematuria. PROCEDURES PERFORMED: Cystoscopy, balloon dilatation of bladder neck contracture, 18-Slovenian Channing tip Nickerson catheter placement over guidewire. ANESTHESIA: LMA. DISPOSITION: To recovery room in stable condition. DRAINS: 18-Slovenian Channing tip 10 mL Nickerson catheter to gravity leg bag. INDICATIONS FOR PROCEDURE AND HISTORY: Mr. Garcia is a pleasant 58-year-old male, status post robotic prostatectomy, pathologic T3b Jesus score 4 + 3 with focal pattern of 5 extracapsular extension with positive SV involvement. He is scheduled for adjuvant RT. The patient with initial postvoid residual of 150 mL , status post radical prostatectomy with bladder neck contracture,. He presents today for balloon dilatation of bladder neck contracture. DESCRIPTION OF PROCEDURE: After an informed consent was signed, the patient was taken to the operating room, placed in a dorsal lithotomy position with the genital area prepped and draped in the usual surgical sterile fashion. A 17-Slovenian cystoscope was utilized to stage the urethra. 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 I was able to bypass the stricture without significant issues as it was nonobstructing. Again, noted at the bladder neck vesicourethral anastomosis was bladder neck contracture. This caliber was about 5-Slovenian. I was able to pass a 5-Slovenian open-ended catheter to the bladder. Using fluoroscopy,placed a 0.35 Super Stiff wire to the level of the bladder. Using a [employer] 21- Slovenian 4-cm balloon dilator, we balloon dilated the bladder neck contracture. Maximum burst pressure was held at 20 atmospheres, pressure was held for 3-5minutes. Subsequently, we deflated the balloon, which demonstrated nice circumferential dilatation of the bladder neck with minimal edema. We staged the bladder, which demonstrated the UOs well away from the anastomosis. No significant bladder stone, tumors, trabeculation was noted. I did not appreciate any significant edema or inflammation of the anastomosis of concern. We dilated the bladder neck contracture atraumatically and an 18-Slovenian Channing tip Nickerson catheter was able to be passed without significant issues, 10 mL insufflated. This was attached to gravity leg bag. He was discharged with ciprofloxacin for 7 days, Azo p.r.n., oxybutynin 10 mg XL #7 p.o. daily for bladder spasm. He will see me next Tuesday for catheter removal, voiding trial. We will proceed with adjuvant radiation therapy, I would recommend starting radiation therapy in about 2 to 3 weeks due to recent bladder neck contracture dilatation. Job ID: [id number] [facility]
== END 2019-06-25 12:40 | disposition home or self-care (01) ==
LOC: SDC 07:27
PROVIDERS: ATTEND Urology
PROC: 0T7C8DZ Dilation of Bladder Neck with Intraluminal Device, Via Natural or Artificial Opening Endoscopic (ICD-10-PCS; principal; 2019-06-25)
DX: N32.0 Bladder-neck obstruction (principal); I10 Essential (primary) hypertension; E78.2 Mixed hyperlipidemia; Z79.4 Long term (current) use of insulin; Z79.899 Other long term (current) drug therapy; Z85.46 Personal history of malignant neoplasm of prostate; Z88.8 Allergy status to other drugs, medicaments and biological substances
CPT/HCPCS: 74420; C1758; C1769; J1956; J2001; J2405; J2704; J3010

== ENCOUNTER 2020-10-07 07:30 | Outpatient (CLI) | payer OTHER | END 2020-10-07 07:31 | disposition home or self-care (01) | LOC: BICULT 07:30 | PROVIDERS: ATTEND Family Medicine | DX: R74.01 Elevation of levels of liver transaminase levels (principal); R16.1 Splenomegaly, not elsewhere classified | CPT/HCPCS: 93975 ==

== ENCOUNTER 2024-05-21 11:41 | Outpatient (CLI) | payer OTHER ==
[2024-05-21 13:06] LABS: #Basophils 0.04 10x3/uL (0.0-0.2); %Basophils 0.9 % (0.0-1.0); %Eosinophils 4.2 % (0.0-10.0); %Lymphocytes 24.7 % (21.0-51.0); %Monocytes 8.7 % (0.0-10.0); %Neutrophils 61.3 % (42.0-75.0); Hematocrit 48.6 % (42.0-52.0); Hemoglobin 17.2 g/dL (14.0-18.0); Mean Corpuscular HGB CONC 35.4 g/dL (32.0-36.0); Mean Corpuscular Hemoglobin 30.9 pg (27.0-31.0); Mean Corpuscular Volume 87.4 fL (78.0-98.0); Platelet Count 139 10x3/uL (130-400); RBC Distribution Width 12.1 % (11.5-14.5); Red Blood Cell (RBC) Count 5.56 mill/uL (4.70-6.10)
[2024-05-21 13:13] LABS: Bacteria/HPF None Seen HPF (None Seen); Bilirubin Negative (Negative); Blood, Urine Negative (Negative); Clarity Clear (Clear); Glucose, Urine (Dipstick) Normal (Negative); Ketone, Urine Negative (Negative); Leukocyte Negative Leu/uL (Negative); Nitrite Negative (Negative); Protein, Urine (Dipstick) Negative (Neg-Trace); RBC/HPF None Seen HPF (0-3); Squamous Epithelial None Seen HPF (0-3); Urobilinogen Normal mg/dL (Less than 2); WBC/HPF None Seen HPF (0-3); pH, Urine 6.5 (5.0-9.0)
[2024-05-21 13:16] LABS: Prothrombin Time 13.3 sec (12.0-14.7)
[2024-05-21 13:17] LABS: PTT 24.2 sec (22.9-36.1)
[2024-05-21 13:28] LABS: Anion Gap 12 mmol/L (10-20); BUN (Urea Nitrogen) 14 mg/dL (8.4-25.7); Calc. Creatinine Clearance 0 mL/min (70-130); Calcium 9.4 mg/dL (7.8-10.44); Carbon Dioxide 25 mmol/L (23-31); Chloride 102 mmol/L (98-107); Estimated GFR 70; Glucose 179 mg/dL (80-115); Potassium 4.3 mmol/L (3.5-5.1); Sodium 135 mmol/L (136-145)
== END 2024-05-21 11:42 | disposition home or self-care (01) ==
LOC: LABBT 11:41
PROVIDERS: ATTEND Urology
DX: Z01.818 Encounter for other preprocedural examination (principal); C61 Malignant neoplasm of prostate; E11.69 Type 2 diabetes mellitus with other specified complication; E78.2 Mixed hyperlipidemia; N40.1 Benign prostatic hyperplasia with lower urinary tract symptoms; N35.819 Other urethral stricture, male, unspecified site; R81 Glycosuria; N32.0 Bladder-neck obstruction; N30.40 Irradiation cystitis without hematuria; R74.8 Abnormal levels of other serum enzymes; R31.29 Other microscopic hematuria; R97.20 Elevated prostate specific antigen [PSA]; R80.8 Other proteinuria; R39.198 Other difficulties with micturition; R39.14 Feeling of incomplete bladder emptying
CPT/HCPCS: 80048; 81001; 85025; 85610; 85730; 87086; 93005; 93010

== ENCOUNTER 2024-05-30 07:08 | Day surgery (SDC) | payer OTHER ==
[2024-05-21 11:57] VITALS: BMI 27.1
[2024-05-30] MEDS ORDERED: LevoFLOXacin D5W 500 mg (100 mL) BAG ONE (08:56)
[2024-05-30] MEDS ORDERED: Iopamidol 15 ML ONE (10:18)
[2024-05-30] MEDS ORDERED: Lidocaine 2% PF 5 ML VIAL ONE (10:19)
[2024-05-30] MEDS ORDERED: fentaNYL PF 100 MCG/2 ML SYRINGE ONE (10:19)
[2024-05-30] MEDS ORDERED: PROPOFOL 20 ML ONE (10:19)
[2024-05-30] MEDS ORDERED: Ondansetron PF 4 MG/2 ML Vial ONE (10:44)
[2024-05-30] MEDS ORDERED: Dexamethasone 4 mg/ml Vial ONE (10:44)
[2024-05-30] MEDS ORDERED: Phenazopyridine HCl 100 MG TAB ONE (11:30)
[2024-05-30] MEDS ORDERED: Oxybutynin 5 MG TAB ONE (11:30)
[2024-05-30] MEDS ORDERED: fentaNYL 50 mcg/mL 1 mL Vial ONE (11:34)
== END 2024-05-30 13:15 | disposition home or self-care (01) ==
LOC: SDC 07:08
PROVIDERS: ATTEND Urology
PROC: 0T7C8ZZ Dilation of Bladder Neck, Via Natural or Artificial Opening Endoscopic (ICD-10-PCS; principal; 2024-05-30)
DX: N32.0 Bladder-neck obstruction (principal); N35.819 Other urethral stricture, male, unspecified site; I10 Essential (primary) hypertension; E11.9 Type 2 diabetes mellitus without complications; E78.2 Mixed hyperlipidemia; N40.1 Benign prostatic hyperplasia with lower urinary tract symptoms; R39.14 Feeling of incomplete bladder emptying; R80.8 Other proteinuria; R81 Glycosuria; R97.20 Elevated prostate specific antigen [PSA]; R74.8 Abnormal levels of other serum enzymes; Z90.79 Acquired absence of other genital organ(s); Z85.46 Personal history of malignant neoplasm of prostate; Z88.8 Allergy status to other drugs, medicaments and biological substances; Z79.899 Other long term (current) drug therapy
CPT/HCPCS: 36416; A4333; C1726; C1769; J1100; J1956; J2405; J2704; J3010; Q9967

== ENCOUNTER 2025-03-06 11:09 | Outpatient (CLI) | payer MEDICARE, OTHER | END 2025-03-06 11:10 | disposition home or self-care (01) | LOC: ULT 11:09 | PROVIDERS: ATTEND Student in an Organized Health Care Education/Training Program | DX: R16.1 Splenomegaly, not elsewhere classified (principal); R74.01 Elevation of levels of liver transaminase levels; K76.0 Fatty (change of) liver, not elsewhere classified | CPT/HCPCS: 76700 ==